=== PATIENT | female | born 1980 | race Caucasian/White ===

== ENCOUNTER 2017-07-30 18:18 | Emergency (ER) | payer MEDICAID ==
[2017-07-30] MEDS ORDERED: fentaNYL 100 MCG/2 ML SDV IVPUSH ONE ×2 (18:36→19:21)
[2017-07-30] MEDS ORDERED: Ondansetron 4 MG/2 ML SDV IVPUSH ONE (18:36)
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
--- NOTE | 2017-07-30 19:40 | PCM.PREANE ---
Preanesthetic Assessment - Anesthesia/Transfusion/Family Hx Anesthesia History: Prior Anesthesia Without Reaction Family History of Anesthesia Reaction: No Transfusion History: No Prior Transfusion(s) - Review of Systems General: No Symptoms Pulmonary: No Symptoms Cardiovascular: No Symptoms Gastrointestinal: No Symptoms Neurological: No Symptoms Other: Reports: None - Physical Assessment NPO Status Date: 07/30/17 NPO Status Time: 15:00 (hot chocolate -noon rice) O2 Sat by Pulse Oximetry: 100 Respiratory Rate: 20 Vital Signs: Last Vital Signs Temp 97.8 F 07/30/17 18:26 Pulse 68 07/30/17 18:26 Resp 20 07/30/17 18:26 BP 120/80 07/30/17 18:26 Pulse Ox 100 07/30/17 18:26 Height: 5 ft 9 in Weight: 64.864 kg ASA Class: 2 Mental Status: Alert & Oriented x3 Airway Class: Mallampati = 1 Dentition: Reports: Normal Dentition Thyro-Mental Finger Breadths: 3 Mouth Opening Finger Breadths: 3 ROM/Head Extension: Full Lungs: Clear to Auscultation, Normal Respiratory Effort Cardiovascular: Regular Rate, Regular Rhythm - Allergies Allergies/Adverse Reactions: Allergies Allergy/AdvReac Type Severity Reaction Status Date / Time milk Allergy Nausea and Verified 07/30/17 18:25 Vomiting - Blood Blood Available: No - Acknowledgements Anesthesia Type Planned: MAC Pt an Appropriate Candidate for the Planned Anesthesia: Yes Alternatives and Risks of Anesthesia Discussed w Pt/Guardian: Yes Pt/Guardian Understands and Agrees with Anesthesia Plan: Yes PreAnesthesia Questionnaire - Past Health History Medical/Surgical History: Denies Medical/Surgical History Cardiovascular History: Reports: None Respiratory History: Reports: None Gastrointestinal History: Reports: None - SUBSTANCE USE Smoking Status *Q: Current Some Day Smoker Tobacco Use Within Last Twelve Months: Cigarettes Second Hand Smoke Exposure: Yes Days Per Week of Alcohol Use: 1 Number of Drinks Per Day: 2 Total Drinks Per Week: 2 Recreational Drug Use History: No - HOME MEDS Home Medications: Home Meds . [No Known Home Meds] 07/30/17 [History] - CURRENT (IN HOUSE) MEDS Current Meds: Current Medications Discontinued Medications Fentanyl (Sublimaze) 100 mcg IVPUSH ONETIME ONE Stop: 07/30/17 18:37 Last Admin: 03/13/18 18:44 Dose: 100 mcg Fentanyl (Sublimaze) 100 mcg IVPUSH ONETIME ONE Stop: 07/30/17 19:22 Ondansetron HCl (Zofran) 4 mg IVPUSH ONETIME ONE Stop: 07/30/17 18:37 Last Admin: 07/30/17 18:41 Dose: 4 mg
[2017-07-30] MEDS ORDERED: Propofol 200 MG/20 ML SDV ONE (19:59)
[2017-07-30] MEDS ORDERED: Lidocaine 1% 4 ML ONE (19:59)
--- NOTE | 2017-07-31 08:20 | CR ---
Right shoulder: Two views of the right shoulder were obtained. Comparison: No previous shoulder study. Anterior dislocation is seen. No acute fracture or other abnormality is identified. Impression: 1. Anterior shoulder dislocation. Diagnostic code #3
--- NOTE | 2017-07-31 08:30 | CR ---
Right shoulder: Single AP view of the right shoulder was obtained. Comparison: Prior right shoulder study performed on the same day (7:03 PM). Previous dislocation has been reduced. No fracture is appreciated. Impression: 1. Reduction of previous dislocation. Diagnostic code #1
== END 2017-07-30 21:09 | disposition home or self-care (01) ==
LOC: JD.ED 18:18
DX: S43.014A Anterior dislocation of right humerus, initial encounter (principal); F17.210 Nicotine dependence, cigarettes, uncomplicated; X50.1XXA Overexertion from prolonged static or awkward postures, initial encounter; Z91.011 Allergy to milk products
CPT/HCPCS: 23650; 73020; 73030; 96374; 96375; 96376; 99152; 99284; J2405; J3010; 01620; 23655; J2704

== ENCOUNTER 2019-01-28 07:33 | Day surgery (SDC) | payer MEDICAID ==
[~2019-01-28 07:33] MED LIST: Lactated Ringers 1,000 ML IV SCH; Lidocaine 1%/Sod Bicarbonate in NS 8.4% 1 ML Syringe IDERM PRN; Sodium Chloride 0.9% 10 ML Syringe FLUSH PRN
[2019-01-28] MEDS ORDERED: EPINEPHrine 1 MG/ML 30 ML MDV SCH (08:00)
[2019-01-28] MEDS ORDERED: Bupivacaine 0.25% 10 ML SDV ONE (08:38)
--- NOTE | 2019-01-28 08:58 | PCM.PREANE ---
Preanesthetic Assessment - Procedure Proposed Procedure: left knee video arthroscopy - Anesthesia/Transfusion/Family Hx Anesthesia History: Prior Anesthesia Without Reaction Family History of Anesthesia Reaction: No Transfusion History: No Prior Transfusion(s) - Review of Systems General: No Symptoms Pulmonary: No Symptoms Cardiovascular: No Symptoms Gastrointestinal: No Symptoms Neurological: No Symptoms Other: Reports: Anxiety ( ) - Physical Assessment NPO Status Date: 01/27/19 NPO Status Time: 23:45 Vital Signs: Last Vital Signs Temp 97.3 F 01/28/19 07:55 Pulse 74 01/28/19 07:55 Resp 16 01/28/19 07:55 BP 104/67 01/28/19 07:55 Pulse Ox 100 01/28/19 07:55 Height: 5 ft 9 in Weight: 63.957 kg ASA Class: 2 Mental Status: Alert & Oriented x3 Airway Class: Mallampati = 1 Dentition: Reports: Normal Dentition Thyro-Mental Finger Breadths: 3 Mouth Opening Finger Breadths: 3 ROM/Head Extension: Full Lungs: Clear to Auscultation, Normal Respiratory Effort Cardiovascular: Regular Rate, Regular Rhythm - Lab Values: Laboratory Last Values Urine HCG, Qual Negative (NEGATIVE) 01/28/19 07:54 - Allergies Allergies/Adverse Reactions: Allergies Allergy/AdvReac Type Severity Reaction Status Date / Time banana Allergy Cannot Verified 01/27/19 16:55 Remember kiwi Allergy Cannot Verified 01/27/19 16:55 Remember milk Allergy Nausea and Verified 01/27/19 16:55 Vomiting pineapple Allergy Cannot Verified 01/27/19 16:55 Remember venlafaxine Allergy Cannot Verified 01/27/19 16:55 Remember - Blood Blood Available: No - Acknowledgements Anesthesia Type Planned: General Anesthesia Pt an Appropriate Candidate for the Planned Anesthesia: Yes Alternatives and Risks of Anesthesia Discussed w Pt/Guardian: Yes Pt/Guardian Understands and Agrees with Anesthesia Plan: Yes PreAnesthesia Questionnaire - Past Health History Medical/Surgical History: Denies Medical/Surgical History HEENT History: Reports: Sinusitis Cardiovascular History: Reports: None Respiratory History: Reports: None Gastrointestinal History: Reports: None Genitourinary History: Reports: UTI, Recurrent CULINARY SPECIALIST History: Reports: None Musculoskeletal History: Reports: Other (See Below) Other Musculoskeletal History: left acl repair Neurological History: Reports: None Psychiatric History: Reports: Anxiety Endocrine/Metabolic History: Reports: None Hematologic History: Reports: None Immunologic History: Reports: None Oncologic (Cancer) History: Reports: None Dermatologic History: Reports: None - Past Surgical History Head Surgeries/Procedures: Reports: None HEENT Surgical History: Reports: None Cardiovascular Surgical History: Reports: None Respiratory Surgical History: Reports: None GI Surgical History: Reports: None Female Surgical History: Reports: None Male Surgical History: Reports: None Endocrine Surgical History: Reports: None Neurological Surgical History: Reports: None Musculoskeletal Surgical History: Reports: None, Other (See Below) (acl) Oncologic Surgical History: Reports: None - SUBSTANCE USE Smoking Status *Q: Current Every Day Smoker Tobacco Use Within Last Twelve Months: No Second Hand Smoke Exposure: Yes Days Per Week of Alcohol Use: 1 Number of Drinks Per Day: 2 Total Drinks Per Week: 2 Recreational Drug Use History: No - HOME MEDS Home Medications: Home Meds Escitalopram [Lexapro] 10 mg PO DAILY 01/27/19 [History] FA/Lycopene/Lut/MV,Ca,Iron,Min [Centrum] 1 tab PO DAILY 01/27/19 [History] LORazepam 1 mg PO DAILY PRN 01/27/19 [History] Levonorgestrel-Ethin Estradiol [[place]-28 Tablet] 1 tab PO DAILY 01/27/19 [ History] Sertraline HCl 50 mg PO DAILY 01/27/19 [History] Acetaminophen/HYDROcodone [[place] 325-5 MG] 1 - 2 tab PO Q6H PRN #20 tablet 01/28 [Rx] Aspirin 325 mg PO BID #84 tab 01/28/19 [Rx] Fexofenadine [Dori] 1 tab PO ASDIRECTED 01/28/19 [History] - CURRENT (IN HOUSE) MEDS Current Meds: Current Medications Epinephrine HCl (Adrenalin) 3 mg .XX ONETIME GARCÍA Stop: 01/28/19 11:00 Lactated Ringer's (Ringers, Lactated) 1,000 mls @ 125 mls/hr IV ASDIRECTED GARCÍA Stop: 01/28/19 23:00 Last Admin: 01/28/19 08:15 Dose: 125 mls/hr Lidocaine/Sodium Bicarbonate (Buffered Lidocaine 1% In Ns 8.4%) 0.25 ml IDERM ONETIME PRN PRN Reason: Prior to IV Start Stop: 01/28/19 18:00 Last Admin: 01/28/19 08:15 Dose: 0.25 ml Sodium Chloride (Saline Flush) 10 ml FLUSH ASDIRECTED PRN PRN Reason: Keep Vein Open Stop: 01/28/19 18:00 Discontinued Medications Bupivacaine HCl (Sensorcaine-Mpf 0.25%) Confirm Administered Dose 20 ml .ROUTE .STK-MED ONE Stop: 01/28/19 08:39
[2019-01-28] MEDS ORDERED: Ondansetron 4 MG/2 ML SDV ONE (09:18)
[2019-01-28] MEDS ORDERED: Lidocaine 1% 4 ML ONE (09:18)
[2019-01-28] MEDS ORDERED: Midazolam 1 MG/ML 2 ML SDV ONE (09:19)
[2019-01-28] MEDS ORDERED: fentaNYL 250 MCG/5 ML SDV ONE (09:19)
[2019-01-28] MEDS ORDERED: Propofol 200 MG/20 ML SDV ONE (09:19)
[2019-01-28] MEDS ORDERED: ceFAZolin 1 GM Vial ONE (09:28)
[2019-01-28] MEDS ORDERED: Ketorolac 30 MG/ML SDV ONE (09:28)
[2019-01-28] MEDS ORDERED: Phenylephrine/Normal Saline 100 MCG/ML 10 ML Syringe ONE (10:10)
[2019-01-28] MEDS ORDERED: fentaNYL 100 MCG/2 ML SDV IVPUSH PRN (10:13)
[2019-01-28] MEDS ORDERED: HYDROmorphone 0.5 MG/0.5 ML Syringe IVPUSH PRN (10:13)
[2019-01-28] MEDS ORDERED: Ondansetron 4 MG/2 ML SDV IVPUSH PRN (10:13)
[2019-01-28] MEDS ORDERED: Lactated Ringers 1,000 ML ONE (10:21)
--- NOTE | 2019-01-28 11:24 | PCM.POSTAN ---
POST ANESTHESIA ASSESSMENT - MENTAL STATUS Mental Status: Somnolent - VITAL SIGNS Vital Signs: Last Vital Signs Temp 97.3 F 01/28/19 07:55 Pulse 74 01/28/19 07:55 Resp 16 01/28/19 07:55 BP 104/67 01/28/19 07:55 Pulse Ox 100 01/28/19 07:55 1115 88 7 97.8 115/69 100% - RESPIRATORY Respiratory Status: Respiratory Rate WNL, Airway Patent, O2 Saturation Stable, Supplemental Oxygen - CARDIOVASCULAR CV Status: Pulse Rate WNL, Blood Pressure Stable - GASTROINTESTINAL GI Status: No Symptoms - POST OP HYDRATION Hydration Status: Adequate & Stable
--- NOTE | 2019-01-28 12:44 | PCM48HPAN ---
Post Anesthesia Note - EVALUATION WITHIN 48HRS OF ANESTHETIC Vital Signs in Normal Range: Yes Patient Participated in Evaluation: Yes Respiratory Function Stable: Yes Airway Patent: Yes Cardiovascular Function Stable: Yes Hydration Status Stable: Yes Pain Control Satisfactory: Yes (ice to knee. still complains of pain- nurse informed) Nausea and Vomiting Control Satisfactory: Yes Mental Status Recovered: Yes Vital Signs: Last Vital Signs Temp 98.4 F 01/28/19 12:22 Pulse 77 01/28/19 12:22 Resp 16 01/28/19 12:22 BP 112/78 01/28/19 12:22 Pulse Ox 100 01/28/19 12:22
--- NOTE | 2019-02-02 07:43 | PCM.OPNOTE ---
- General Post-Op/Procedure Note Date of Surgery/Procedure: 01/28/19 Operative Procedure(s): left knee video arthroscopy with medial meniscal repair Pre Op Diagnosis: left knee medial meniscus tear Post-Op Diagnosis: Same Anesthesia Technique: General LMA, Local Primary Surgeon: Charles Chance Anesthesia Provider: Kellie Elizabeth Crane Crew Supervisor: Evita Ventura in mLs: 5 Complications: None Condition: Good
--- NOTE | 2019-02-02 08:13 | OR ---
DATE OF OPERATION: 01/28/2019 SURGEON: Charles Chance MD OPERATION PERFORMED: Left knee video arthroscopy with medial meniscal repair of bucket-handle lesion. PREOPERATIVE DIAGNOSIS: Left knee medial meniscus tear. POSTOPERATIVE DIAGNOSIS: Left knee medial meniscus tear. ANESTHESIA: General LMA with local. ANESTHESIA PROVIDER: Kellie Elizabeth CRNA. MORGUE ATTENDANT: Evita Ventura PA-C. ESTIMATED BLOOD LOSS: 5 mL. COMPLICATIONS: None. CONDITION: Stable. DESCRIPTION OF PROCEDURE: The patient was identified in the preoperative holding area. Proper site was marked and identified by surgeon. The patient was taken back to the operating theater, where after adequate anesthesia, the patient's right lower extremity was placed in a well leg ulrich. Left lower extremity had a nonsterile tourniquet applied and was then placed in a C-clamp ulrich. Foot of the bed was then lowered. Left lower extremity was then sterilely prepped and draped in the usual sterile fashion. OR time-out was performed. The patient received 2 g of IV Ancef. Left lower extremity was exsanguinated and tourniquet was insufflated 250 mmHg. Standard anterior lateral portal incision was made. Scope trocar was introduced to the patellofemoral joint. 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 There were no loose foreign bodies in the mediolateral gutter. At this time, attention was turned to the medial compartment. With the use of a spinal needle, anterior medial portal was created. At this time, the patient was noted to have an unstable bucket-handle tear of the red-white zone all the way of the complete medial meniscus. At this time, secondary to the patient's age and activity level, I did decide that we would have to do a medial meniscal repair secondary to the patient's previously stated age and activity. At this time, a rasp was used circumferentially around the tear at the red-white zone. There was good bleeding noted on the red zone of the meniscal side. Starting posteriorly, I was able to place 5 Gill [employer] Nephew all-inside meniscal repair anchors. I did contemplate doing an inside- out repair but we had such good angles through the medial and lateral portals, being able to obtain good fixation of the tear with the all-inside kits. The patient had a very stable meniscus after the 5 anchors were placed, and good compression across the entire bucket-handle tear with no signs of instability. At this time, the ACL was found to be intact in the notch. Lateral compartment just showed very minimal chondromalacial signs, but otherwise no other abnormality or meniscal tear was noted. At this time, excess saline was drained from the knee. 3-0 nylon sutures were used for closure of the skin. The patient had a sterile soft dressing applied and the hinged knee brace locked and was sent to the PACU in stable condition. MMODAL /[id number]
== END 2019-01-28 13:35 | disposition home or self-care (01) ==
LOC: JD.SDS 07:33
PROVIDERS: ATTEND Orthopaedic Surgery
DX: S83.212A Bucket-handle tear of medial meniscus, current injury, left knee, initial encounter (principal); M22.42 Chondromalacia patellae, left knee; F41.9 Anxiety disorder, unspecified; F17.210 Nicotine dependence, cigarettes, uncomplicated; X58.XXXA Exposure to other specified factors, initial encounter; Z91.011 Allergy to milk products; Z91.018 Allergy to other foods; Z88.8 Allergy status to other drugs, medicaments and biological substances; Z79.899 Other long term (current) drug therapy
CPT/HCPCS: 29882; 81025; 87641; J0690; J1885; J2001; J2250; J2370; J2405; J2704; J3010; J3490; J7120; 01400

== ENCOUNTER 2020-02-21 16:20 | Emergency (ER) | payer MEDICAID ==
--- NOTE | 2020-02-21 16:42 | EDM.PDOC ---
ED HPI GENERAL MEDICAL PROBLEM - General Chief Complaint: Trauma Stated Complaint: ARM/BACK/SHOULDER PAIN/FELL OFF HORSE Time Seen by Provider: 02/21/20 16:20 - History of Present Illness INITIAL COMMENTS - FREE TEXT/NARRATIVE: 39-year-old female presents the emergency room after being thrown off a horse She complains of neck left shoulder and arm pain. Patient was riding a horse and the horse got a little rambunctious and threw the patient off the horse she landed on her left shoulder she thinks and has significant pain in her left shoulder arm and forearm and she has some numbness in her hand. It is hard for her to differentiate what part of her hand is numb. She does not want to move her arm mostly because of pain but she will move her arm. Patient was brought in by private motor vehicle. Patient has a significant medical history for currently being treated with for breast cancer with chemotherapy. Last chemo was about 2 weeks ago Upper Arm Pain Score (Numeric/FACES): 10 Neck Pain Score (Numeric/FACES): 10 - Related Data Allergies Allergy/AdvReac Type Severity Reaction Status Date / Time banana Allergy Cannot Verified 02/21/20 16:37 Remember kiwi Allergy Cannot Verified 02/21/20 16:37 Remember pineapple Allergy Cannot Verified 02/21/20 16:37 Remember venlafaxine Allergy Cannot Verified 02/21/20 16:37 Remember milk AdvReac Nausea and Verified 02/21/20 16:37 Vomiting Home Meds: Home Meds Escitalopram [Lexapro] 10 mg PO DAILY 01/27/19 [History] LORazepam 1 mg PO DAILY PRN 01/27/19 [History] Levonorgestrel/Ethin.estradiol [Michelle-28 Tablet] 1 tab PO DAILY 01/27/19 [History] Past Medical History - Past Health History Medical/Surgical History: Denies Medical/Surgical History HEENT History: Reports: Sinusitis Cardiovascular History: Reports: None Respiratory History: Reports: None Gastrointestinal History: Reports: None Genitourinary History: Reports: UTI, Recurrent NEWS DIRECTOR History: Reports: None Musculoskeletal History: Reports: Other (See Below) Other Musculoskeletal History: left acl repair Neurological History: Reports: None Psychiatric History: Reports: Anxiety Endocrine/Metabolic History: Reports: None Hematologic History: Reports: None Immunologic History: Reports: None Oncologic (Cancer) History: Reports: None Dermatologic History: Reports: None - Past Surgical History Head Surgeries/Procedures: Reports: None HEENT Surgical History: Reports: None Cardiovascular Surgical History: Reports: None Respiratory Surgical History: Reports: None GI Surgical History: Reports: None Female Surgical History: Reports: None Male Surgical History: Reports: None Endocrine Surgical History: Reports: None Neurological Surgical History: Reports: None Musculoskeletal Surgical History: Reports: None, Other (See Below) (acl) Oncologic Surgical History: Reports: None Social & Family History - Tobacco Use Smoking Status *Q: Former Smoker Used Tobacco, but Quit: Yes Month/Year Tobacco Last Used: 01/07/20 - Caffeine Use Caffeine Use: Reports: None - Recreational Drug Use Recreational Drug Use: Yes Recreational Drug Type: Reports: Marijuana/Hashish Review of Systems - Review of Systems Review Of Systems: See Below Constitutional: Reports: No Symptoms Eyes: Reports: No Symptoms Ears: Reports: No Symptoms Nose: Reports: No Symptoms Mouth/Throat: Reports: No Symptoms Respiratory: Reports: No Symptoms. Denies: Pleuritic Chest Pain Cardiovascular: Reports: No Symptoms GI/Abdominal: Reports: No Symptoms Genitourinary: Reports: No Symptoms Musculoskeletal: Reports: Neck Pain, Shoulder Pain, Arm Pain, Hand Pain Skin: Reports: No Symptoms Neurological: Reports: Numbness (Left hand) ED EXAM, GENERAL - Physical Exam Exam: See Below Exam Limited By: No Limitations General Appearance: Alert, Mild Distress (She does not want to move her left arm but she will) Eye Exam: Bilateral Eye: EOMI, Normal Inspection, PERRL Ears: Normal External Exam, Normal Canal, Hearing Grossly Normal, Normal TMs Nose: Normal Inspection, Normal Mucosa Throat/Mouth: Normal Inspection, Normal Oropharynx, Normal Voice, No Airway Compromise Head: Atraumatic, Normocephalic Neck: Other (Has right paraspinous spasm from visual inspection and bruising developing over the lower spinous processes c-collar was applied at this point) Respiratory/Chest: No Respiratory Distress, Lungs Clear, Normal Breath Sounds, Other (Port in place) Cardiovascular: Regular Rate, Rhythm, No Edema, No Murmur GI/Abdominal: Normal Bowel Sounds, Soft, Non-Tender, No Distention, Pelvis Stable. No: Guarding, Rigid, Rebound Back Exam: Normal Inspection, Vertebral Tenderness (The upper thoracic region) Extremities: No Pedal Edema, Other (It is difficult to examine her left upper extremity because of hesitation in moving it.) Neurological: Alert, Oriented, CN II-XII Intact Course - Vital Signs Last Recorded V/S: Last Vital Signs Temp 36.6 C 02/21/20 16:32 Pulse 83 02/21/20 16:32 Resp 15 02/21/20 16:32 BP 122/73 02/21/20 16:32 Pulse Ox 100 02/21/20 16:32 - Orders/Labs/Meds Orders: Active Orders 24 hr Category Date Time Status Cervical Spine wo Cont [CT] Stat Exams 02/21/20 16:39 Taken Chest Abdomen Pelvis w Cont [CT] Stat Exams 02/21/20 18:17 Taken Forearm 2V Lt [CR] Stat Exams 02/21/20 16:39 Taken Head wo Cont [CT] Stat Exams 02/21/20 18:14 Taken Humerus Lt [CR] Stat Exams 02/21/20 16:39 Taken Shoulder Comp Lt [CR] Stat Exams 02/21/20 16:39 Taken Thoracic Spine wo Cont [CT] Stat Exams 02/21/20 16:39 Taken Lactated Ringers [Ringers, Lactated] 1,000 ml Med 02/21/20 18:30 Active IV ASDIRECTED Medication Orders Lactated Ringer's (Ringers, Lactated) 1,000 mls @ 125 mls/hr IV ASDIRECTED GARCÍA Labs: Laboratory Tests 02/21/20 02/21/20 02/21/20 Range/Units 16:35 16:35 18:30 WBC 19.62 H (3.98-10.04) K/mm3 RBC 3.71 L (3.98-5.22) M/mm3 Hgb 10.7 L (11.2-15.7) gm/dl Hct 32.9 L (34.1-44.9) % MCV 88.7 (79.4-94.8) fl MCH 28.8 (25.6-32.2) pg MCHC 32.5 (32.2-35.5) g/dl RDW Std Deviation 43.0 (36.4-46.3) fL Plt Count 209 (182-369) K/mm3 MPV 11.0 (9.4-12.3) fl Neut % (Auto) 85.7 H (34.0-71.1) % Lymph % (Auto) 6.9 L (19.3-51.7) % White % (Auto) 4.8 (4.7-12.5) % Eos % (Auto) 0.3 L (0.7-5.8) Baso % (Auto) 0.7 (0.1-1.2) % Neut # (Auto) 16.82 H (1.56-6.13) K/mm3 Lymph # (Auto) 1.35 (1.18-3.74) K/mm3 White # (Auto) 0.94 H (0.24-0.36) K/mm3 Eos # (Auto) 0.06 (0.04-0.36) K/mm3 Baso # (Auto) 0.13 H (0.01-0.08) K/mm3 Manual Slide Review Abnormal smear Sodium 142 (136-145) mEq/L Potassium 3.0 L (3.5-5.1) mEq/L Chloride 105 (98-107) mEq/L Carbon Dioxide 27 (21-32) mEq/L Anion Gap 13.0 (5-15) BUN 11 (7-18) mg/dL Creatinine 0.8 (0.55-1.02) mg/dL Est Cr Clr Drug Dosing 93.71 mL/min Estimated GFR (MDRD) > 60 (>60) mL/min BUN/Creatinine Ratio 13.8 L (14-18) Glucose 146 H (74-106) mg/dL Calcium 8.7 (8.5-10.1) mg/dL Total Bilirubin 0.2 (0.2-1.0) mg/dL AST 17 (15-37) U/L ALT 24 (14-59) U/L Alkaline Phosphatase 69 (46-116) U/L Total Protein 7.0 (6.4-8.2) g/dl Albumin 4.0 (3.4-5.0) g/dl Globulin 3.0 gm/dL Albumin/Globulin Ratio 1.3 (1-2) SARS-CoV-2 RNA (SHERON) Negative (NEGATIVE) Meds: Medications Generic Name Dose Route Start Last Admin Trade Name Freq PRN Reason Stop Dose Admin Lactated Ringer's 1,000 mls @ 125 mls/hr 02/21/20 18:30 Ringers, Lactated IV ASDIRECTED GARCÍA Discontinued Medications Generic Name Dose Route Start Last Admin Trade Name Anders PRN Reason Stop Dose Admin Dexamethasone 4 mg 02/21/20 18:08 02/21/20 18:39 Dexamethasone IVPUSH 02/21/20 18:09 4 mg ONETIME ONE Administration Fentanyl 50 mcg 02/21/20 16:50 02/21/20 17:07 Sublimaze IVPUSH 02/21/20 16:51 50 mcg ONETIME ONE Administration Fentanyl 50 mcg 02/21/20 17:37 Sublimaze IVPUSH 02/21/20 17:38 ONETIME ONE Hydromorphone HCl 0.5 mg 02/21/20 18:20 02/21/20 18:39 Dilaudid IVPUSH 02/21/20 18:21 0.5 mg ONETIME ONE Administration Lactated Ringer's 500 mls @ 999 mls/hr 02/21/20 18:18 02/21/20 18:39 Ringers, Lactated IV 02/21/20 18:48 999 mls/hr .BOLUS ONE Administration - Re-Assessments/Exams Free Text/Narrative Re-Assessment/Exam: 02/21/20 20:[address] C-spine CT shows an unstable cervical spine injury at C6-7 there is a 6 mm anterior listhesis left-sided fractures of C6 and C7 C7 has some comminution associated left-sided foraminal narrowing and suggestion of epidural hemorrhage right side is perched right-sided facet and head CT is negative for acute changes chest CT negative for acute changes abdomen pelvis negative for acute changes T-spine no acute fracture dislocation or other acute changes. Plain films of the left shoulder humerus forearm are unremarkable. Patient's case was discussed with Dr. Pro, neurosurgeon at [facility] in [place] who agrees the patient should be sent there he recommends giving 4 mg of IV dexamethasone this was done. Case was discussed with Dr. Ramirez in the emergency room who accepts the patient. Departure - Departure Time of Disposition: 18:30 Disposition: DC/Tfer to [facility] 02 Clinical Impression: C6 cervical fracture, C7 cervical fracture - Discharge Information Referrals: Elba Osborne PA-C [Primary Care Provider] - Forms: ED Department Discharge Sepsis Event Note (ED) - Evaluation Sepsis Screening Result: No Definite Risk - Focused Exam Vital Signs: Vital Signs Temp Pulse Resp BP Pulse Ox 02/21/20 16:32 36.6 C 83 15 122/73 100 - My Orders Last 24 Hours: My Active Orders 02/21/20 16:39 Cervical Spine wo Cont [CT] Stat Forearm 2V Lt [CR] Stat Humerus Lt [CR] Stat Shoulder Comp Lt [CR] Stat Thoracic Spine wo Cont [CT] Stat 02/21/20 18:14 Head wo Cont [CT] Stat 02/21/20 18:17 Chest Abdomen Pelvis w Cont [CT] Stat 02/21/20 18:30 Lactated Ringers [Ringers, Lactated] 1,000 ml IV ASDIRECTED - Assessment/Plan Last 24 Hours: My Active Orders 02/21/20 16:39 Cervical Spine wo Cont [CT] Stat Forearm 2V Lt [CR] Stat Humerus Lt [CR] Stat Shoulder Comp Lt [CR] Stat Thoracic Spine wo Cont [CT] Stat 02/21/20 18:14 Head wo Cont [CT] Stat 02/21/20 18:17 Chest Abdomen Pelvis w Cont [CT] Stat 02/21/20 18:30 Lactated Ringers [Ringers, Lactated] 1,000 ml IV ASDIRECTED
[2020-02-21] MEDS ORDERED: fentaNYL 100 MCG/2 ML SDV IVPUSH ONE ×2 (16:50→17:37)
[2020-02-21] MEDS ORDERED: Dexamethasone 4 MG/ML SDV IVPUSH ONE (18:08)
[2020-02-21] MEDS ORDERED: Lactated Ringers 500 ML IV ONE (18:18)
[2020-02-21] MEDS ORDERED: HYDROmorphone 0.5 MG/0.5 ML Syringe IVPUSH ONE (18:20)
[2020-02-21] MEDS ORDERED: Lactated Ringers 1,000 ML IV SCH (18:30)
--- NOTE | 2020-03-22 11:09 | CT ---
PROCEDURE INFORMATION: Exam: CT Head Without Contrast Exam date and time: 02/21/2020 6:46 PM Age: 39 years old Clinical indication: Injury or trauma TECHNIQUE: Imaging protocol: Computed tomography of the head without contrast. Radiation optimization: All CT scans at this facility use at least one of these dose optimization techniques: automated exposure control; mA and/or kV adjustment per patient size (includes targeted exams where dose is matched to clinical indication); or iterative reconstruction. COMPARISON: No relevant prior studies available. FINDINGS: Brain: There is no intracranial hemorrhage. There is no mass effect or midline shift. Normal otero white differentiation. Cerebral ventricles: The ventricles and sulci are appropriate in size and configuration for age. Bones/joints: The calvarium is intact. Paranasal sinuses: No acute sinusitis. Mastoid air cells: Visualized mastoid air cells are well aerated. Soft tissues: Unremarkable. IMPRESSION: No acute intracranial findings. Remainder of findings described as above. Thank you for allowing us to participate in the care of your patient. Dictated and Authenticated by: Mark Del Angel MD 03/21/2020 10:21 PM Central Time ([place] & [place]) [facility]
--- NOTE | 2020-03-22 11:10 | CT ---
"PROCEDURE INFORMATION: Exam: CT Cervical Spine Without Contrast Exam date and time: 02/21/2020 4:43 PM Age: 39 years old Clinical indication: Injury or trauma; Patient HX: Trauma, fell from horse, lt upper extremity numbness TECHNIQUE: Imaging protocol: Computed tomography images of the cervical spine without contrast. Radiation optimization: All CT scans at this facility use at least one of these dose optimization techniques: automated exposure control; mA and/or kV adjustment per patient size (includes targeted exams where dose is matched to clinical indication); or iterative reconstruction. COMPARISON: No relevant prior studies available. FINDINGS: Bones/joints: There is 6 mm of anterolisthesis at C6-C7. On the right side there is a perched facet. On the left side there are facet fractures involving the inferior aspect of C6 in the superior portion of the facet and body of the facet at C7. There is involvement of the left pedicle at C7. There is comminution. There is involvement of the left vertebral artery foramen. There is foraminal stenosis on the left at this level with lateral recess stenosis and some degree of disc protrusion. Suspect some epidural hemorrhage at the C7-T1 level. Discs/Spinal canal/Neural foramina: See vertebra section. Soft tissues: Unremarkable. There is some beam hardening artifact from the patient's jewelry. Lungs: Lung apices are normal. IMPRESSION: Unstable cervical spine injury at C6-C7. There is anterolisthesis, left-sided facet fractures of C6 and C7 with comminution of the latter. There is involvement of the pedicle. There is left-sided foraminal narrowing and concern for some degree of epidural hemorrhage. There is a perched right-sided facet. JIMENEZ CACERES | Final Radiology Report CONFIDENTIALITY STATEMENT This report is intended only for use by the referring physician, and only in accordance with law. If you received this in error, call [phone]. Page 2 of 2 The left vertebral artery foramen is involved at C7. MRI assessment is suggested for additional characterization if patient MRI compatible. Pattie Ramirez MD initially discussed case findings with NIKOLAI BARTHOLOMEW 02/21/2020, 6:52 PM CDT at time of preliminary report. Thank you for allowing us to participate in the care of your patient. Dictated and Authenticated by: Mark Del Angel MD 03/21/2020 10:24 PM Central Time ([place] & [place]) ANY"
--- NOTE | 2020-03-22 11:11 | CT ---
"PROCEDURE INFORMATION: Exam: CT Thoracic Spine Without Contrast Exam date and time: 02/21/2020 4:43 PM Age: 39 years old Clinical indication: Pain in thoracic spine; Patient HX: Numbness/pain from shoulder through hand, fall from horse, back pain TECHNIQUE: Imaging protocol: Computed tomography images of the thoracic spine without contrast. Radiation optimization: All CT scans at this facility use at least one of these dose optimization techniques: automated exposure control; mA and/or kV adjustment per patient size (includes targeted exams where dose is matched to clinical indication); or iterative reconstruction. COMPARISON: No relevant prior studies available. FINDINGS: Tubes, catheters and devices: Right-sided central line catheter in place. Vertebrae: The patient's C6-C7 left-sided facet and pedicle fractures and anterolisthesis are again noted. See separate cervical spine report for details. Discs/Spinal canal/Neural foramina: No significant disc protrusion. No severe spinal canal stenosis. No significant neural foraminal narrowing. Soft tissues: Unremarkable. Kidneys and ureters: Probable left renal scarring with some atrophy. IMPRESSION: Lower cervical spine abnormality as previously reported. No evidence for thoracic spine fracture or dislocation. Remainder of findings described as above. Thank you for allowing us to participate in the care of your patient. NICKI JIMENEZ | Final Radiology Report CONFIDENTIALITY STATEMENT This report is intended only for use by the referring physician, and only in accordance with law. If you received this in error, call [phone]. Page 2 of 2 Dictated and Authenticated by: Mark Del Angel MD 03/21/2020 11:04 PM Central Time ([place] & [place]) ANY"
--- NOTE | 2020-03-22 11:13 | CR ---
PROCEDURE INFORMATION: Exam: XR Left Shoulder Exam date and time: 02/21/2020 5:21 PM Age: 39 years old Clinical indication: Other: Numbness/pain from shoulder through hand TECHNIQUE: Imaging protocol: XR Left shoulder. Views: 2 or more views. COMPARISON: No relevant prior studies available. FINDINGS: Tubes, catheters and devices: Right central venous catheter noted. Bones/joints: Left C7 facet fracture seen. See separate cervical spine CT. No evidence for shoulder abnormality. Bony alignment is anatomic without evidence for fracture or dislocation. Soft tissues: Normal. IMPRESSION: No evidence for acute shoulder abnormality. Left cervical fracture redemonstrated as previously described. Remainder of findings described as above. Thank you for allowing us to participate in the care of your patient. Dictated and Authenticated by: Mark Del Angel MD 03/21/2020 10:59 PM Central Time ([place] & [place]) ANY
--- NOTE | 2020-03-22 11:13 | CR ---
PROCEDURE INFORMATION: Exam: XR Left Humerus Exam date and time: 02/21/2020 5:25 PM Age: 39 years old Clinical indication: Patient HX: Numbness/pain from shoulder through hand, fall from horse TECHNIQUE: Imaging protocol: XR Left humerus Views: 2 or more views. COMPARISON: No relevant prior studies available. FINDINGS: Bones/joints: No neoplastic osseous lesion. No acute joint dislocation. No acute fracture. Soft tissues: No evidence of suspicious abnormal radiopaque foreign body. IMPRESSION: 1. No acute fracture. 2. Remainder of findings described as above. Thank you for allowing us to participate in the care of your patient. Dictated and Authenticated by: Mark Del Angel MD 03/21/2020 10:55 PM Central Time ([place] & [place]) ANY
--- NOTE | 2020-03-22 11:14 | CR ---
PROCEDURE INFORMATION: Exam: XR Left Forearm Exam date and time: 02/21/2020 5:27 PM Age: 39 years old Clinical indication: Patient HX: Numbness/pain from shoulder through hand, fall from horse TECHNIQUE: Imaging protocol: XR Left forearm. Views: 2 views. COMPARISON: No relevant prior studies available. FINDINGS: Bones/joints: No neoplastic osseous lesion. No acute joint dislocation. No acute fracture. Soft tissues: No evidence of suspicious abnormal radiopaque foreign body. IMPRESSION: 1. No acute fracture. 2. Remainder of findings described as above. Thank you for allowing us to participate in the care of your patient. Dictated and Authenticated by: Mark Del Angel MD 03/21/2020 11:05 PM Central Time ([place] & [place]) ANY
--- NOTE | 2020-03-22 11:18 | CT ---
"PROCEDURE INFORMATION: Exam: CT Chest With Contrast Exam date and time: 02/21/2020 6:46 PM Age: 39 years old Clinical indication: Injury or trauma; Patient HX: Fall from horse, PT just finish cemo TECHNIQUE: Imaging protocol: Computed tomography of the chest with intravenous contrast. Radiation optimization: All CT scans at this facility use at least one of these dose optimization techniques: automated exposure control; mA and/or kV adjustment per patient size (includes targeted exams where dose is matched to clinical indication); or iterative reconstruction. COMPARISON: No relevant prior studies available. FINDINGS: Tubes, catheters and devices: There is a MediPort catheter with tip appropriately positioned in the mid SVC. Lungs: Lung windows show dependent atelectasis bilaterally. There are pulmonary nodules identified including a 4 mm pulmonary nodule in the right lower lobe, series 3, image 44, a 5 mm pulmonary nodule in the left lower lobe, also on image 44, and a 5 mm pulmonary nodule in the left lower lobe on image 49. There is a ground-glass pulmonary nodule in the left lower lobe on image 54. There is no pulmonary contusion. There is no infectious or aspiration pneumonia. Pleural space: There are no pleural effusions. There is no pneumothorax. Heart: The heart size is normal. There is no evidence of right ventricular strain. There is no pericardial effusion. Pulmonary arteries: No intraluminal filling defects are identified to suggest a pulmonary embolism. Aorta: The thoracic aorta is normal in caliber and contour. There is no evidence of aneurysm or dissection. Lymph nodes: No pathologically enlarged mediastinal, hilar or axillary lymph nodes are identified. JIMENEZ CACERES | Final Radiology Report Page 2 of 3 Bones/joints: There is an acute cervical spine fracture, as described on the dedicated cervical spine CT. There is normal alignment in the thoracic spine. There is preservation of the thoracic spine vertebrae. The sternum is intact. No acute rib fracture is identified. Soft tissues: There is a 1.6 cm dense ovoid nodule in the central left breast which contains a central punctate calcification. IMPRESSION: 1. No acute traumatic injury is identified in the chest in this patient with a known cervical spine fracture. 2. Multiple pulmonary nodules are identified in the chest. Recommend comparison with any recent chest CT imaging in this patient undergoing chemotherapy for malignancy. 3. 1.6 cm nodule in the left breast. Recommend correlation with mammography. Remainder of findings described as above. PROCEDURE INFORMATION: Exam: CT Abdomen And Pelvis With Contrast Exam date and time: 02/21/2020 6:46 PM Age: 39 years old Clinical indication: Injury or trauma; Patient HX: Fall from horse, PT just finish cemo TECHNIQUE: Imaging protocol: Computed tomography of the abdomen and pelvis with intravenous contrast. COMPARISON: No relevant prior studies available. FINDINGS: Liver: The liver is homogeneous in appearance without focal hepatic lesions. Gallbladder and bile ducts: The gallbladder is not distended. There is no biliary ductal dilatation. Pancreas: The pancreas is within normal limits. Spleen: The spleen is normal in size. Adrenal glands: The adrenal glands are normal in appearance. Kidneys and ureters: The right kidney is normal in appearance. The left kidney is atrophic and demonstrates cortical scarring. There is chronic appearing moderate left hydronephrosis and moderately severe left hydroureter. No calculi are identified along the course of either ureter. Stomach and bowel: The stomach is not distended. No pathologically dilated small bowel loops are identified. There is no evidence of colonic wall thickening or pericolonic inflammation. There is a large volume of stool in the colon. Appendix: There is a normal appendix in the right lower quadrant. Intraperitoneal space: There is no free air or free fluid in the abdomen or pelvis. Vasculature: The abdominal aorta is normal in caliber. The celiac axis, SMA and JOHNATHON are patent. Lymph nodes: No pathologically enlarged lymph nodes are identified in the abdomen or pelvis. Urinary bladder: The urinary bladder appears normal. Reproductive: The uterus is normal in appearance. The ovaries appear normal bilaterally. There are enlarged bilateral adnexal veins. JIMENEZ CACERES | Final Radiology Report CONFIDENTIALITY STATEMENT This report is intended only for use by the referring physician, and only in accordance with law. If you received this in error, call [phone]. Page 3 of 3 Bones/joints: There is slight anterolisthesis of L5 upon S1 in the setting of bilateral spondylolysis. There is preservation of the lumbar vertebral body heights. The sacroiliac joints are symmetric. The pubic rami are intact. The hip joints are normally articulated. The pubic symphysis is not widened. Soft tissues: No large soft tissue hematoma is identified. IMPRESSION: 1. No acute traumatic injury is identified in the abdomen or pelvis. 2. Moderate left hydronephrosis and moderately severe left hydroureter. This finding is likely chronic given the associated atrophy and cortical scarring of the left kidney. 3. Prominent amount of stool present throughout multiple segments of colon. Remainder of findings described as above. Thank you for allowing us to participate in the care of your patient. Dictated and Authenticated by: Mark Del Angel MD 03/21/2020 10:57 PM Central Time ([place] & [place]) ANY"
== END 2020-02-21 19:50 ==
LOC: JD.ED 16:20
DX: S12.500A Unspecified displaced fracture of sixth cervical vertebra, initial encounter for closed fracture (principal); S12.600A Unspecified displaced fracture of seventh cervical vertebra, initial encounter for closed fracture; F41.9 Anxiety disorder, unspecified; C50.919 Malignant neoplasm of unspecified site of unspecified female breast; Z91.018 Allergy to other foods; Z88.8 Allergy status to other drugs, medicaments and biological substances; Z91.011 Allergy to milk products; Z79.899 Other long term (current) drug therapy; Z87.891 Personal history of nicotine dependence; Z20.828 Contact with and (suspected) exposure to other viral communicable diseases; V80.010A Animal-rider injured by fall from or being thrown from horse in noncollision accident, initial encounter
CPT/HCPCS: 36415; 70450; 71260; 72125; 72128; 73030; 73060; 73090; 74177; 80053; 85025; 87635; 96361; 96374; 96375; 99285; J1100; J1170; J3010; J7120; U0002

== ENCOUNTER 2023-04-30 07:51 | Day surgery (SDC) | payer MEDICAID ==
[~2023-04-30 07:51] MED LIST changes: +HYDROmorphone 0.5 MG/0.5 ML Syringe IVPUSH PRN; -Lidocaine 1%/Sod Bicarbonate in NS 8.4% 1 ML Syringe IDERM PRN; +Ondansetron 4 MG/2 ML SDV IVPUSH PRN; +Sodium Chloride 0.9% 10 ML Syringe FLUSH SCH; +fentaNYL 100 MCG/2 ML SDV IVPUSH PRN
[2023-04-30] MEDS ORDERED: fentaNYL 100 MCG/2 ML SDV ONE (08:05)
[2023-04-30] MEDS ORDERED: Propofol 200 MG/20 ML SDV ONE (08:05)
[2023-04-30] MEDS ORDERED: Rocuronium 50 MG/5 ML Vial ONE (08:05)
[2023-04-30] MEDS ORDERED: Lidocaine 1% 4 ML ONE (08:05)
[2023-04-30] MEDS ORDERED: Midazolam 1 MG/ML 2 ML SDV ONE (08:05)
[2023-04-30] MEDS ORDERED: Sugammadex Sodium 200 MG/2 ML VIAL ONE (08:06)
[2023-04-30 08:15] LABS: BASOPHILS ABSOLUTE AUTO 0.1 K/mm3 (0.0-0.2); BASOPHILS PERCENT AUTO 1.3 % (0.0-1.0); EOSINOPHILS ABSOLUTE AUTO 0.5 K/mm3 (0.0-0.4); EOSINOPHILS PERCENT AUTO 8.7 % (0.0-6.0); HEMATOCRIT 37.8 % (37.0-47.0); HEMOGLOBIN 12.6 gm/dl (12.0-16.0); IMMATURE GRAN ABSOLUTE AUTO 0.02 K/mm3 (0.00-0.05); IMMATURE GRAN PERCENT AUTO 0.3 % (0.0-0.4); LYMPHOCYTES ABSOLUTE AUTO 1.8 K/mm3 (1.0-4.8); LYMPHOCYTES PERCENT AUTO 30.5 % (24.0-44.0); MEAN CORPUSCULAR HEMOGLOBIN 29.2 pg (28.0-32.0); MEAN CORPUSCULAR HGB CONC 33.3 g/dl (32.0-36.0); MEAN CORPUSCULAR VOLUME 87.7 fl (83.0-99.0); MEAN PLATELET VOLUME 10.4 fl (9.4-12.3); MONOCYTES ABSOLUTE AUTO 0.5 K/mm3 (0.0-0.8); MONOCYTES PERCENT AUTO 7.5 % (0.0-8.0); NEUTROPHILS ABSOLUTE AUTO 3.1 K/mm3 (1.8-7.7); NEUTROPHILS PERCENT AUTO 51.7 % (41.0-71.0); PLATELET COUNT,PLT 206 K/mm3 (150-400); RED BLOOD CELL COUNT 4.31 M/mm3 (4.10-5.30); WHITE BLOOD CELL COUNT,WBC 5.97 K/mm3 (3.9-11.3)
[2023-04-30] MEDS ORDERED: Bupivacaine 0.5% 10 ML SDV ONE (08:28)
[2023-04-30 08:39] LABS: A/G RATIO 1.2 (1-2); ALBUMIN 4.2 g/dl (3.4-5.0); BILIRUBIN TOTAL 0.6 mg/dL (0.2-1.0); BUN/CREATININE RATIO 16.7 (14-18); CALCIUM 9.1 mg/dL (8.5-10.1); CREATININE 0.9 mg/dL (0.55-1.02); EST CRCL DRUG DOSING (CG) 78.25 mL/min; PROTEIN TOTAL,TP 7.8 g/dl (6.4-8.2)
[2023-04-30] MEDS ORDERED: ceFAZolin 2 GM Vial ONE (10:00)
[2023-04-30] MEDS ORDERED: Dexamethasone 4 MG/ML 5 ML MDV ONE (10:19)
[2023-04-30] MEDS ORDERED: Ondansetron 4 MG/2 ML SDV ONE (10:19)
[2023-04-30] MEDS ORDERED: Ketorolac 30 MG/ML SDV ONE (10:19)
[2023-04-30] MEDS ORDERED: HYDROmorphone 0.5 MG/0.5 ML Syringe ONE (10:26)
[2023-04-30] MEDS ORDERED: Acetaminophen 325 MG Tab PO ONE (13:30)
== END 2023-04-30 13:50 | disposition home or self-care (01) ==
LOC: JD.SDS 07:51
PROVIDERS: ATTEND Obstetrics & Gynecology
DX: C79.63 Secondary malignant neoplasm of bilateral ovaries (principal); C50.912 Malignant neoplasm of unspecified site of left female breast; F32.A Depression, unspecified; F41.9 Anxiety disorder, unspecified; D64.9 Anemia, unspecified; Z17.0 Estrogen receptor positive status [ER+]; Z87.891 Personal history of nicotine dependence; Z79.899 Other long term (current) drug therapy; Z91.011 Allergy to milk products; Z91.013 Allergy to seafood; Z91.018 Allergy to other foods; Z91.010 Allergy to peanuts; Z88.8 Allergy status to other drugs, medicaments and biological substances; Z91.040 Latex allergy status
CPT/HCPCS: 36415; 58661; 80053; 85025; A9270; J0665; J0690; J1100; J1170; J1885; J2250; J2405; J2704; J3010; J3490; J7120

== ENCOUNTER 2023-09-25 08:50 | Day surgery (SDC) | payer MEDICAID ==
[~2023-09-25 08:50] MED LIST changes: -HYDROmorphone 0.5 MG/0.5 ML Syringe IVPUSH PRN; -Lactated Ringers 1,000 ML IV SCH; -Ondansetron 4 MG/2 ML SDV IVPUSH PRN; -fentaNYL 100 MCG/2 ML SDV IVPUSH PRN
[2023-09-25] MEDS: Lactated Ringers 1,000 ML IV SCH (09:15)
[2023-09-25] MEDS ORDERED: Ondansetron 4 MG/2 ML SDV ONE (10:00)
[2023-09-25] MEDS ORDERED: Propofol 200 MG/20 ML SDV ONE (10:01)
[2023-09-25] MEDS ORDERED: Lidocaine 1% 5 ML VIAL ONE (10:01)
[2023-09-25] MEDS ORDERED: fentaNYL 100 MCG/2 ML SDV ONE (10:01)
[2023-09-25] MEDS ORDERED: Midazolam 1 MG/ML 2 ML SDV ONE (10:01)
[2023-09-25] MEDS ORDERED: ceFAZolin 2 GM Vial ONE (10:34)
[2023-09-25] MEDS: Bupivacaine 0.25% 10 ML SDV ONE (10:56)
[2023-09-25] MEDS: EPINEPHrine 1 MG/ML SDV ONE (11:00)
[2023-09-25] MEDS ORDERED: Ondansetron 4 MG/2 ML SDV IVPUSH PRN (11:29)
[2023-09-25] MEDS: HYDROmorphone 0.5 MG/0.5 ML Syringe ONE (11:38)
[2023-09-25] MEDS: fentaNYL 100 MCG/2 ML SDV IVPUSH PRN (11:49)
[2023-09-25] MEDS: HYDROmorphone 0.5 MG/0.5 ML Syringe IVPUSH PRN (12:04)
[2023-09-25] MEDS: traMADol 50 MG Tab PO PRN (12:25)
== END 2023-09-25 13:07 | disposition home or self-care (01) ==
LOC: JD.SDS 08:50
PROVIDERS: ATTEND Orthopaedic Surgery
DX: S83.212A Bucket-handle tear of medial meniscus, current injury, left knee, initial encounter (principal); F41.9 Anxiety disorder, unspecified; F32.A Depression, unspecified; D64.9 Anemia, unspecified; C50.912 Malignant neoplasm of unspecified site of left female breast; G43.909 Migraine, unspecified, not intractable, without status migrainosus; Z87.891 Personal history of nicotine dependence; Z79.899 Other long term (current) drug therapy; Z88.8 Allergy status to other drugs, medicaments and biological substances; Z91.011 Allergy to milk products; Z91.010 Allergy to peanuts; X58.XXXA Exposure to other specified factors, initial encounter
CPT/HCPCS: 29881; A9270; J0171; J0690; J1170; J2250; J2405; J2704; J3010; J3490; J7120; 01400; J0665